=== PATIENT | female | born 1935 | race Caucasian/White ===

== ENCOUNTER → 2017-05-11 | Outpatient (CLI) | payer OTHER, MEDICARE ==
[~2017-05-11] MED LIST: ADULT LOW DOSE81 MG PO; CALCIUM PO; COLACE 100 MG100 MG; VITAMIN B-150 MG; VITAMIN C 250250 MG; VITAMIN D400 UNI1; XALATAN2.5 ML; XALATAN2.5 ML OP
== END ==
LOC: CAT 08:42
DX: I25.10 Atherosclerotic heart disease of native coronary artery without angina pectoris (principal); J84.10 Pulmonary fibrosis, unspecified; J98.4 Other disorders of lung

== ENCOUNTER → 2019-02-23 | Outpatient (CLI) | payer OTHER, MEDICARE | LOC: MRI 10:50 | DX: S83.242A Other tear of medial meniscus, current injury, left knee, initial encounter (principal); S83.272A Complex tear of lateral meniscus, current injury, left knee, initial encounter; M25.462 Effusion, left knee; M71.22 Synovial cyst of popliteal space [Baker], left knee; X58.XXXA Exposure to other specified factors, initial encounter; Y93.89 Activity, other specified; Y92.89 Other specified places as the place of occurrence of the external cause; Y99.8 Other external cause status ==

== ENCOUNTER → 2019-06-01 | Outpatient (CLI) | payer OTHER, MEDICARE | LOC: ULTRA 13:53 | DX: M71.22 Synovial cyst of popliteal space [Baker], left knee (principal) ==

== ENCOUNTER → 2019-06-16 | Outpatient (CLI) | payer OTHER, MEDICARE | LOC: MRI 07:07 | DX: M71.22 Synovial cyst of popliteal space [Baker], left knee (principal); M25.462 Effusion, left knee ==

== ENCOUNTER 2020-05-19 11:27 | Emergency (ER) | payer OTHER, MEDICARE ==
[~2020-05-19] VITALS: Ht 165.1 cm; Wt 88.5 kg
[2020-05-19 13:02] LABS: ABSOLUTE NEUTROPHILS 2.1 thou/uL (1.4-8.2); BASOPHILS 0.7 % (0.0-2.0); EOSINOPHILS 6.4 % (0.0-3.0); HEMATOCRIT 38.4 % (37.0-47.0); HEMOGLOBIN 12.8 gm/dL (12.0-15.0); LYMPHOCYTES 26.5 % (24.0-44.0); MCH 29.9 pg (26.0-34.0); MCHC 33.5 g/dL (28.0-37.0); MCV 89.2 fL (80.0-100.0); MONOCYTES 7.2 % (1.0-8.0); PLATELET COUNT 141 thou/uL (150-400); POLYS 59.2 % (36.0-66.0); RDW 13.3 % (10.5-14.5); WBC 3.6 thou/uL (4.0-11.0)
[2020-05-19 13:07] LABS: ANION GAP 10 mmol/L (7-16); BUN 18 mg/dL (7-18); CALCIUM 9.8 mg/dL (8.5-10.1); CHLORIDE 102 mmol/L (98-107); CO2 26 mmol/L (21-32); CREATININE 0.9 mg/dL (0.6-1.0); GLUCOSE 194 mg/dL (74-106); POTASSIUM 4.1 mmol/L (3.5-5.1); SODIUM 138 mmol/L (136-145)
[2020-05-19 13:17] LABS: SGOT 25 U/L (15-37); SGPT 47 U/L (14-59); TOTAL BILIRUBIN 0.6 mg/dL (0.2-1.0); TOTAL PROTEIN 7.2 g/dL (6.4-8.2); TROPONIN-I <0.06 ng/mL (<0.06)
[2020-05-19 13:43] LABS: URINE BILIRUBIN NEGATIVE (Negative); URINE BLOOD NEGATIVE (Negative); URINE CLARITY CLEAR; URINE COLOR YELLOW; URINE GLUCOSE-RANDOM* NEGATIVE (Negative); URINE KETONES NEGATIVE (Negative); URINE LEUKOCYTES-REFLEX NEGATIVE (Negative); URINE NITRITE-REFLEX NEGATIVE (Negative); URINE PROTEIN (DIPSTICK) NEGATIVE (Negative); URINE SPECIFIC GRAVITY 1.025 (1.005-1.035)
[2020-05-19 14:26] VITALS: BP 177/78
[2020-05-19] MEDS ORDERED: MECLIZINE HCL25 M1 PO (14:40)
--- NOTE | 2020-05-20 09:49 | EKG ---
[address] [address] ELECTROCARDIOGRAM REPORT Name: JERRYREBEKAH Room #: [facility]#: [id number] Admission: 05/19/20 Attend Phys: Discharge: 05/19/20 Date of : 39 Report #: [id number] [facility] ED Test Date: 2020-05-19 Test Time: 11:43:32 Pat Name: REBEKAH JERRY Department: Room: Gender: F Manager Track: GIULIANO : 1935 Requested By: Nahun Jackson Order Number: [id number] : Pavel Bautista Measurements Intervals [place] Rate: 65 P: 38 DC: 152 QRS: 10 QRSD: 92 T: 32 QT: 401 QTc: 417 Interpretive Statements Sinus rhythm Compared to ECG 12/01/2010 07:47:06 No significant changes Electronically Signed On 05-20-2020 9:49:15 [employer] by Pavel Bautista [email or web address] <ELECTRONICALLY SIGNED> By: Pavel Bautista MD, [facility] 05/20/20 0949 [id number] 1143 Pavel Bautista MD, FACC /EPI
== END 2020-05-19 14:55 | disposition home or self-care (01) ==
LOC: ER 11:27
PROVIDERS: Emergency Medicine
DX: R42 Dizziness and giddiness (principal); Z79.82 Long term (current) use of aspirin; Z90.710 Acquired absence of both cervix and uterus; Z79.899 Other long term (current) drug therapy